=== PATIENT | male | born 1985 | race Caucasian/White ===

== ENCOUNTER 2025-10-06 20:05 | Emergency (ER) | payer OTHER ==
[2025-10-06] MEDS ORDERED: Tetracaine 0.5% PF 4 ML BOT ONE (20:21)
[2025-10-06] MEDS ORDERED: Fluorescein Opthalmic Strip ONE (20:21)
[2025-10-06] MEDS ORDERED: cefTRIAXone (ROCEPHIN) 2 GM VIAL ONE (20:22)
[2025-10-06] MEDS ORDERED: Ondansetron PF 4 MG/2 ML Vial ONE (20:24)
[2025-10-06 20:26] LABS: #Basophils 0.1 thou/uL (0.0-0.2); #Eosinophils 0.3 thou/uL (0.0-0.7); #Lymphocytes 5.2 thou/uL (1.20-3.40); #Monocytes 1.0 thou/uL (0.11-0.59); #Neutrophils 9.2 thou/uL (1.40-6.50); %Basophils 0.9 % (0.0-1.0); %Eosinophils 2.0 % (0.0-10.0); %Lymphocytes 33.0 % (21.0-51.0); %Monocytes 6.3 % (0.0-10.0); %Neutrophils 57.9 % (42.0-75.0); Hematocrit 43.1 % (42.0-52.0); Hemoglobin 14.5 g/dL (14.0-18.0); Mean Corpuscular Hemoglobin 30.3 pg (27.0-31.0); Mean Corpuscular Volume 90.1 fl (78.0-98.0); Platelet Count 325 10x3/uL (130-400); Red Blood Cell (RBC) Count 4.78 mill/uL (4.70-6.10); White Blood Cell (WBC) Count 15.8 10x3/uL (4.8-10.8)
[2025-10-06 20:35] LABS: INR-International Normal Ratio 0.9; Prothrombin Time 12.3 sec (12.0-14.7)
[2025-10-06 20:36] LABS: PTT 25.9 sec (22.9-36.1)
[2025-10-06 20:45] LABS: ALT (SGPT) 14 U/L (Less than 45); AST (SGOT) 22 U/L (11-34); Albumin 4.2 g/dL (3.1-4.5); Alkaline Phosphatase 79 U/L (40-110); Anion Gap 17 mmol/L (10-20); BUN (Urea Nitrogen) 16 mg/dL (8.9-20.6); Bilirubin, Total 0.3 mg/dL (0.3-1.2); Calc. Creatinine Clearance 0 mL/min (70-130); Calcium 8.9 mg/dL (7.8-10.44); Carbon Dioxide 25 mmol/L (22-29); Chloride 104 mmol/L (98-107); Globulin 3.0 g/dL (2.4-3.5); Glucose 101 mg/dL (70-105); Potassium 3.4 mmol/L (3.5-5.1); Sodium 143 mmol/L (136-145)
== END 2025-10-06 23:18 | disposition short-term general hospital (02) ==
LOC: MADERS 20:05
DX: S62.512A Displaced fracture of proximal phalanx of left thumb, initial encounter for closed fracture (principal); S62.613A Displaced fracture of proximal phalanx of left middle finger, initial encounter for closed fracture; S05.02XA Injury of conjunctiva and corneal abrasion without foreign body, left eye, initial encounter; S05.01XA Injury of conjunctiva and corneal abrasion without foreign body, right eye, initial encounter; T20.00XA Burn of unspecified degree of head, face, and neck, unspecified site, initial encounter; W39.XXXA Discharge of firework, initial encounter; Y93.89 Activity, other specified
CPT/HCPCS: 29125; 71045; 80053; 85025; 85610; 85730; 90471; 90715; 96365; 96375; 96376; J0696; J2270; J2272; J2405; J7030